=== PATIENT | female | born 1995 | race Hispanic/Latino ===

== ENCOUNTER 2024-03-23 19:46 | Emergency (ER) | payer SELFPAY ==
[~2024-03-23] VITALS: Ht 167.6 cm; Wt 89.8 kg
[~2024-03-23 19:46] MED LIST: ACET-66 PO; GUAIF10 PO; IBUP-2070 PO; ONDA-243 PO
[2024-03-23 20:29] LABS: RAPID GROUP A STREP negative (NEGATIVE)
[2024-03-23 20:37] LABS: SARS-CoV-2, RNA, NAAT POSITIVE SARS CoV-2 (NEGATIVE)
[2024-03-23 20:39] LABS: INFLUENZA TYPE A Negative For Type A (NEGATIVE); INFLUENZA TYPE B Negative For Type B (NEGATIVE)
[2024-03-23 21:42] VITALS: BP 125/75; PULSE 98; RESP 16; TEMP 98; O2SAT 100
== END 2024-03-23 21:51 | disposition home or self-care (01) ==
LOC: EDH 19:46
DX: U07.1 COVID-19 (principal); J45.909 Unspecified asthma, uncomplicated; Z79.899 Other long term (current) drug therapy
CPT/HCPCS: 87635; 87804; 87880